=== PATIENT | male | born 1995 | race Two or more races ===

== ENCOUNTER 2019-12-05 11:46 | Emergency (ER) | payer OTHER ==
[2019-12-05 11:52] VITALS: BP 176/94
--- NOTE | 2019-12-05 12:09 | ER Document Report ---
HPI - HPI Patient complains to provider of: right sided jaw pain/swelling Time Seen by Provider: 12/05/19 12:00 Pain Level: 4 Context: 24-year-old male with no previous medical problems presents to the emergency room complaining of pain and swelling to his posterior right jaw in front of his right ear that started yesterday. States worsening pain today. Denies any trauma or injury. No recent swimming or flying. And worse with chewing. Denies any dental issues. Took Motrin this morning with minimal relief. No recent travel. No COVID-19 exposure Associated Symptoms: None Exacerbated by: Other - Showing Similar symptoms previously: No Recently seen / treated by doctor: No - ROS ROS below otherwise negative: Yes - CONSTITUTIONAL Constitutional: DENIES: Fever - EENT EENT: DENIES: Sore Throat, Ear Pain Notes: Right jaw pain - NEURO Neurology: DENIES: Headache - RESPIRATORY Respiratory: DENIES: Coughing - MUSCULOSKELETAL Musculoskeletal: DENIES: Neck Pain - DERM Skin Color: Normal Skin Problems: None Past Medical History - General Information source: Patient - Social History Smoking Status: Never Smoker Frequency of alcohol use: Occasional Drug Abuse: None Family History: Reviewed & Not Pertinent Patient has homicidal ideation: No Vertical Provider Document - CONSTITUTIONAL Agree With Documented VS: Yes Exam Limitations: No Limitations General Appearance: WD/WN, Mild Distress - INFECTION CONTROL TRAVEL OUTSIDE OF THE [place] IN LAST 30 DAYS: No - HEENT HEENT: Atraumatic, Normocephalic, Tympanic Membrane Bulging. negative: Pharyngeal Tenderness, Pharyngeal Erythema Notes: Right tympanic membrane is pain with fluid filled blister noted consistent with bullous myringitis outer ear canal without erythema or swelling, left tympanic membrane is intact. Left outer ear canal without erythema or swelling. Positive for right preauricular lymphadenopathy. - NECK Neck: Normal Inspection. negative: Lymphadenopathy-Left, Lymphadenopathy-Right - RESPIRATORY Respiratory: Breath Sounds Normal, No Respiratory Distress, Chest Non-Tender. negative: Rales, Rhonchi, Wheezing - CARDIOVASCULAR Cardiovascular: Regular Rate, Regular Rhythm, No Murmur - BACK Back: Normal Inspection - NEURO Level of Consciousness: Awake, Alert, Appropriate Motor/Sensory: No Motor Deficit, No Sensory Deficit - DERM Integumentary: Warm, Dry Course - Re-evaluation Re-evalutation: 12/05/19 12:05 Reviewed diagnosis with patient. Counseled to continue with Tylenol and/or Motrin as needed for pain. Antibiotics as prescribed. Follow-up with an political science research assistant if not improving in 2 to 3 days. Patient was provided with on-call physician. Patient was given strict return to the emergency room guidelines. Return for any new or worsening symptoms. All questions were answered. Patient verbalized understanding and agrees with plan of care. - Vital Signs Vital signs: Temp Pulse Resp BP Pulse Ox 98.4 F 100 16 176/94 H 97 12/05/19 12:01 12/05/19 11:50 12/05/19 11:50 12/05/19 11:50 12/05/19 11:50 Discharge - Discharge Clinical Impression: Bullous myringitis, right ear Condition: Stable Disposition: HOME, SELF-CARE Instructions: Bullous Myringitis ([facility]) Additional Instructions: Antibiotics as prescribed. Tylenol and or Motrin for pain. Outpatient follow- up with political science research assistant if not improving in 2 to 3 days. Return for any new or worsening symptoms. Prescriptions: Azithromycin [Zithromax 250 mg Tablet] 250 mg PO ASDIR PRN #6 tablet PRN Reason: Referrals: ANGEL DO MD [ACTIVE STAFF] - Follow up in 3-5 days (Follow-up appointment if not improving in 2 to 3 days.)
== END 2019-12-05 12:13 | disposition home or self-care (01) ==
LOC: ER 11:46
DX: H73.21 Unspecified myringitis, right ear (principal); R68.84 Jaw pain; R22.0 Localized swelling, mass and lump, head
CPT/HCPCS: 99283